=== PATIENT | male | born 1965 | race Caucasian/White ===

== ENCOUNTER → 2016-11-17 | Day surgery (SDC) | payer BC ==
[~2016-11-17] MED LIST: ACETAMINOPHEN/HYDROcodone 325 MG/5 MG TAB ONE; BUPIVACAINE/EPINEPHRINE 0.5% PF 30 ML VIAL ONE; KETOROLAC TROMETHAMINE 30 MG/ML (IVP) VIAL IV PUSH ONE; LACTATED RINGER'S 1000 ML INJ 1,000 ML ONE; LORTA5 PO; MIDAZOLAM HCL 2 MG/2 ML VIAL ONE; ONDANSETRON HCL 4 MG/2 ML VIAL IV PUSH ONE; PROPOFOL 200 MG/20 ML AMP IV ONE; ROBA750T3 PO; TRIAMCINOLONE ACETONIDE 40 MG/ML VIAL ONE; ceFAZolin INJ 1,000 MG VIAL ONE
--- NOTE | 2016-11-20 09:00 | MP ---
cc: DINA CARDOSO M.D. DATE OF SURGERY November 17, 2015 PREOPERATIVE DIAGNOSIS Right knee lateral meniscal tear. POSTOPERATIVE DIAGNOSIS Right knee lateral meniscal tear. SURGEON: Dina Cardoso MD TEMPERATURE CONTROL INSPECTOR: HANNA Castañeda The surgical procedure was assisted by my Advanced Registered Nurse Practitioner. My WORKERS COMPENSATION ANALYST's presence was necessary throughout this case for the manipulation and positioning of the surgical extremity. My WORKERS COMPENSATION ANALYST was assisting me throughout the duration of this procedure. The skill set of an Advanced Registered Nurse Practitioner was medically necessary to complete this procedure. During the surgical case, the assembler surgical garment was working at the back table and the Advanced Registered Nurse Practitioner was directly assisting me. PROCEDURE Right knee arthroscopy with partial lateral meniscectomy. ESTIMATED BLOOD LOSS Minimal. ANESTHESIA General anesthesia. TOURNIQUET TIME 0 minutes. PROCEDURE The patient was brought back to the operative theater. General anesthesia was administered, received intravenous Ancef. The right lower extremity was prepped and draped in the usual sterile fashion. We started with standard inferolateral portal, followed by inferomedial portal under spinal needle visualization. There was mild synovitis in suprapatellar pouch. The patellofemoral joint had minimal grade 1 chondromalacia of the patella and no significant chondromalacia of the trochlea was noted. The medial compartment was free of chondromalacia. There may have been a subtle undersurface tear of the medial meniscus by the posterior horn by probing but this did not extend to the superior aspect and this did not lead to any instability so ultimately this was just left as it was fairly small. The anterior cruciate ligament was found to be intact. Evaluation of the lateral compartment revealed a complex tear of the lateral meniscus which essentially all the way around the meniscus from posterior horn, through the midbody to anteriorly. It was horizontal in nature for the most part but then also complex as well. This led to instability of much of the meniscus. We performed a partial lateral meniscectomy using oscillating shaver and also a meniscal biter. We removed approximately 50% of the meniscus. We confirmed there were no loose bodies in any of the compartments including the medial and lateral gutters. We removed all debris from the knee using the oscillating shaver. An intraarticular injection of 0.25% Marcaine was given with 40 mg of Kenalog. The portals were closed with 2-0 Vicryl, followed by 3-0 nylon. The leg was dressed. Postoperative plan is standard arthroscopic partial lateral meniscectomy protocol. MD TAB Campbell/SSB /3:18 PM /8:52 AM
== END | disposition home or self-care (01) ==
LOC: ESDC 13:12
PROVIDERS: ATTEND Orthopaedic Surgery
DX: S83.271A Complex tear of lateral meniscus, current injury, right knee, initial encounter (principal)
CPT/HCPCS: 01400; 29881; J0690; J1885; J2250; J2405; J3010; J3301; J7120